=== PATIENT | female | born 1950 | race Caucasian/White ===

== ENCOUNTER → 2018-11-05 | Outpatient (CLI) | payer MEDICARE, OTHER ==
--- NOTE | 2018-11-05 13:15 | WOMENS IMAGING REPORT ---
EXAM DESCRIPTION: BILAT SCREENING MAMMO W/CAD COMPLETED DATE/TIME: 11/05/2018 12:54 pm REASON FOR STUDY: SCREENING MAMMO Z12.31 ENCNTR SCREEN MAMMOGRAM FOR MALIGNANT NEOPLASM OF YENY COMPARISON: None. TECHNIQUE: Standard craniocaudal and mediolateral oblique views of each breast recorded using digita l acquisition. LIMITATIONS: None. FINDINGS: Findings present which are benign by mammographic criteria. No suspicious masses, calcifi cations or architectural distortion. Pertinent benign findings: Cyst right. Read with the assistance of CAD. .[facility] - R2 Cenova Version 1.3 .[facility] - R2 Cenova Version 1.3 .[facility] - R2 Cenova Version 2.4 .[facility] [place] R2 Cenova Version 2.4 .[facility] - R2 Manager Of Digital Version 9.2 Benign mammographic findings may include one or more of the following: Smooth masses, popcorn/rim/co arse calcifications, asymmetries, post-procedure changes, and lesions with long-standing stability. IMPRESSION: BENIGN MAMMOGRAPHIC FINDINGS. BIRADS 2 BREAST DENSITY: b. There are scattered areas of fibroglandular density. BIRAD: 2 BENIGN FINDING(S) RECOMMENDATION: ROUTINE SCREENING COMMENT: The patient has been notified of the results by letter per SA requirements. Additional no tification policies are in place for contacting patient with suspicious or incomplete findings. Quality ID #[id number]: The [employer] recommends an annual screening mammogram for women aged 40 years or over. This facility utilizes a reminder system to ensure that all patients receive reminder letters, and/or direct phone calls for appointments. This includes reminders for routine scr eening mammograms, diagnostic mammograms, or other Breast Imaging Interventions when appropriate. Th is patient will be placed in the appropriate reminder system. The [employer] (ACR) has developed recommendations for screening MRI of the breast s in certain patient populations, to be used in conjunction with mammography. Breast MRI surveillanc e may be appropriate for women with more than 20% lifetime risk of developing breast cancer as deter mined by genetic testing, significant family history of the disease, or history of mantle radiation f or Hodgkins Disease. ACR Practice Guidelines 2008. TECHNICAL DOCUMENTATION: FINDING NUMBER: (1) ASSESSMENT: (1) JOB ID: [id number] [employer]- All Rights Reserved Reading location - IP/workstation name: [email or web address]
== END ==
LOC: WI 11:11
PROVIDERS: ATTEND Physician Assistant
DX: Z12.31 Encounter for screening mammogram for malignant neoplasm of breast (principal)
CPT/HCPCS: 77067

== ENCOUNTER → 2018-11-19 | Outpatient (CLI) | payer MEDICARE, OTHER ==
--- NOTE | 2018-11-19 12:33 | WOMENS IMAGING REPORT ---
EXAM DESCRIPTION: BONE DENSITY HIP/SPINE COMPLETED DATE/TIME: 11/19/2018 12:17 pm REASON FOR STUDY: OSTEOPOROSIS M81.0 M81.0 AGE-RELATED OSTEOPOROSIS W/O CURRENT PATHOLOGICAL FRAC COMPARISON: None. TECHNIQUE: Dual-Energy X-ray Absorptiometry (DEXA) of the AP Spine and Hip. LIMITATIONS: None. FINDINGS: LUMBAR SPINE: The bone mineral density (BMD) measured from L1-L4 in the AP projection correlates with a T-score of -1.3, which is osteopenia as defined by the World Health Organization. HIP: The bone mineral density (BMD) measured in the left hip correlates with a T-score of -1.8, which is o steopenia as defined by the World Health Organization. IMPRESSION: 1. LUMBAR SPINE: OSTEOPENIA. 2. HIP: OSTEOPENIA. COMMENT: The World Health Organization defines low BMD as follows: T-score: Normal: Greater than -1.0 Osteopenia: Between -1.0 and -2.5 Osteoporosis: Less than -2.5 without fractures Established osteoporosis: Less than -2.5 with fractures In general, you may wish to consider: Diagnosis Treatment Follow-up DEXA Normal BMD Prevention 2-3 years Osteopenia Prevention/Therapy 1-2 years Osteoporosis Therapy Yearly TECHNICAL DOCUMENTATION: JOB ID: [id number] [employer]- All Rights Reserved Reading location - IP/workstation name: [email or web address]
== END ==
LOC: WI 14:47
PROVIDERS: ATTEND Physician Assistant
DX: M81.0 Age-related osteoporosis without current pathological fracture (principal)
CPT/HCPCS: 77080

== ENCOUNTER 2020-03-21 18:41 | Emergency (ER) | payer MEDICARE, OTHER ==
--- NOTE | 2020-03-21 19:11 | ER Document Report ---
ED Medical Screen (RME) - General Chief Complaint: Altered Mental Status Stated Complaint: BACK PAIN Time Seen by Provider: 03/21/20 18:46 Primary Care Provider: MICHELINE JUAN PA-C [Primary Care Provider] - Follow up as needed Information source: Emergency Med Personnel Notes: 70-year-old female presented to ED for complaint of left chest shoulder arm pain that started while at the doctor's office. According to the EMS the [facility] told them that she was acting alert and oriented until she went to the bathroom and then she started becoming confused. She does have some confusion during her interview with me. She states that she does have sharp stabbing pains that come to the left side of her back down her left arm. She states that she was sure she had a UTI but the [facility] told her she does not but her urine was extremely dark so she may be dehydrated. She did make several comments that did not make sense and at other times she was perfectly lucid. She states she does smoke anywhere from 1 to 10 cigarettes a day but not more than that does not drink and does not use drugs. She states she does not have any past medical history and no surgical history. Consulted Dr. Richardson who came in and recommended she get a CTA of chest and abdomen and a CT of the head. These have been ordered as well as blood work. I have greeted and performed a rapid initial assessment of this patient. A comprehensive ED assessment and evaluation of the patient, analysis of test results and completion of medical decision making process will be conducted by an additional ED providers. TRAVEL OUTSIDE OF THE [place] IN LAST 30 DAYS: No Past Medical History - Immunizations Hx Diphtheria, Pertussis, Tetanus Vaccination: No Doctor's Discharge - Discharge Referrals: MICHELINE JUAN PA-C [Primary Care Provider] - Follow up as needed
[2020-03-21 19:30] LABS: ABSOLUTE BASOPHILS # (AUTO) 0.1 10^3/uL (0.0-0.2); ABSOLUTE EOSINOPHILS # (AUTO) 0.2 10^3/uL (0.0-0.6); ABSOLUTE LYMPHOCYTES (AUTO) 1.7 10^3/uL (0.5-4.7); ABSOLUTE NEUT (AUTO) 7.8 10^3/uL (1.7-8.2); BASOPHILS % (AUTO) 0.5 % (0-2); EOSINOPHILS % (AUTO) 2.1 % (0-6); HEMATOCRIT 45.5 % (36.0-47.0); HEMOGLOBIN 15.9 g/dL (12.0-15.5); LYMPHOCYTES % (AUTO) 15.9 % (13-45); MEAN CORPUSCULAR HEMOGLOBIN 30.4 pg (27.0-33.4); MEAN CORPUSCULAR HGB CONC 34.9 g/dL (32.0-36.0); MEAN CORPUSCULAR VOLUME 87 fl (80-97); MONOCYTES % (AUTO) 9.4 % (3-13); PLATELET COUNT 257 10^3/uL (150-450); RED BLOOD COUNT 5.22 10^6/uL (3.72-5.28); RED CELL DISTRIBUTION WIDTH 13.3 % (11.5-14.0); SEGMENTED NEUTROPHILS % (AUTO) 72.1 % (42-78); TOTAL CELLS COUNTED % (AUTO) 100 %; WHITE BLOOD COUNT 10.9 10^3/uL (4.0-10.5)
[2020-03-21 19:37] LABS: PROTHROMBIN TIME 13.2 SEC (11.4-15.4)
[2020-03-21 19:38] LABS: PARTIAL THROMBOPLASTIN TIME 26.4 SEC (23.5-35.8)
[2020-03-21 19:49] LABS: ALBUMIN 4.7 g/dL (3.5-5.0); ALKALINE PHOSPHATASE 91 U/L (38-126); ANION GAP 6 (5-19); ASPARTATE AMINO TRANSFERASE 38 U/L (14-36); BILIRUBIN,TOTAL 0.5 mg/dL (0.2-1.3); BLOOD UREA NITROGEN 22 mg/dL (7-20); CALCIUM 10.3 mg/dL (8.4-10.2); CARBON DIOXIDE 29 mmol/L (22-30); CHLORIDE 105 mmol/L (98-107); GLUCOSE 121 mg/dL (75-110); TOTAL PROTEIN 7.3 g/dL (6.3-8.2)
--- NOTE | 2020-03-21 20:05 | ER Document Report ---
ED General - General Chief Complaint: Altered Mental Status Stated Complaint: BACK PAIN Time Seen by Provider: 03/21/20 18:46 Primary Care Provider: MICHELINE JUAN PA-C [Primary Care Provider] - Follow up as needed TRAVEL OUTSIDE OF THE [place] 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 She is felt like she had recurrent episodes of spasm with this during the day. She is not taking any medications at home but has been very uncomfortable. She reports intermittently having some tingling into the left arm. She was seen at primary care physician's office and they felt that she needed a cardiac work-up and she was sent here for further evaluation. She still intermittently having discomfort although she is relatively free of pain when she lies still. She denies any difficulty with swallowing or speech. She was very anxious when she arrived here and the midlevel provider who did initial triage felt that she was mildly confused although patient denies any awareness of such problems. She denies headache, nausea, vomiting, diaphoresis or chest pain. She denies any visual symptoms. She denies any known trauma or unaccustomed activity. Patient is adopted and has no knowledge of her family history. She denies any known history of hypertension or diabetes. She denies any known history of thromboembolic disease. She is not taking any regular medications and has no known allergies. - Related Data Allergies/Adverse Reactions: No Known Allergies Allergy (Verified 03/21/20 19:31) Past Medical History - General Information source: Emergency Med Personnel - Social History Smoking Status: Current Every Day Smoker Frequency of alcohol use: None Drug Abuse: None Family History: None Patient has homicidal ideation: No - Past Medical History Cardiac Medical History: Reports: None Pulmonary Medical History: Reports: None Neurological Medical History: Reports: None GI Medical History: Reports: None Psychiatric Medical History: Reports: Hx Depression Past Surgical History: Reports: None - Immunizations Hx Diphtheria, Pertussis, Tetanus Vaccination: No Review of Systems - Review of Systems Notes: Constitutional: Negative for fever. HENT: Negative for sore throat. Eyes: Negative for visual changes. Cardiovascular: Negative for chest pain. Respiratory: Negative for shortness of breath. Gastrointestinal: Negative for abdominal pain, vomiting or diarrhea. Genitourinary: Negative for dysuria. Musculoskeletal: As per HPI. Skin: Negative for rash. Neurological: As per HPI. 10 point ROS negative except as marked above and in HPI. Physical Exam - Vital signs Vitals: Pulse Resp BP Pulse Ox 67 18 145/78 H 97 03/21/20 18:41 03/21/20 18:41 03/21/20 18:41 03/21/20 18:41 - Notes Notes: GENERAL: Female patient approximately stated age who appears somewhat anxious but otherwise in no acute distress. SKIN: Good turgor no rashes. HEAD: Normocephalic atraumatic. EYES: PERRLA. EOMI. Conjunctivae and sclerae clear. EARS: CANALS AND TMS CLEAR. NOSE: CLEAR. MOUTH: Moist mucosa. Good dentition. No stridor or edema. No drooling. NECK: Supple. No masses or thyromegaly. No adenopathy. Carotids 2+ without bruits. No JVD. BACK: Symmetrical with mild tenderness in the intrascapular region. Her pain seems to be aggravated with movement of the left upper extremity actively or passively and she is more comfortable when she is holding the arm still. CHEST: Respirations unlabored. Breath sounds clear and symmetrical. HEART: Regular rhythm. No murmur gallop or rub. ABDOMEN: Soft nontender without masses, organomegaly or rebound. Bowel sounds normally active. No bruits. GENITALIA: Deferred. EXTREMITIES: No edema. No calf tenderness. Cap refill less than 1.5 seconds. Upper extremity pulses are 3+ and symmetrical dorsalis pedis and posterior tibial pulses 3+ and symmetrical. NEUROLOGICAL: GCS 15. Alert and oriented x3. Fluent speech. Cranial nerves II through XII intact. Sensorimotor and cerebellar normal. Normal tone. PSYCHIATRIC: Anxious affect. Course - Re-evaluation Re-evalutation: 03/21/20 20:23 Differential diagnosis for this patient would include: Thoracic aortic dissection, myocardial ischemia, musculoskeletal strain, occult vertebral compression fracture. We will obtain a CT scan noncontrast of the head and a CTA of the chest and abdomen. Initial EKG is normal. Cardiac enzymes and d-dimer have been requested along with CBC and comprehensive metabolic profile. We will treat patient with analgesics for symptoms as needed pending current work-up. 03/21/20 23:31 D-dimer and initial troponin were normal. The twelve-lead EKG showed no acute changes at the time of presentation. CT of the head was reported as normal by radiologist. CT a of the chest and abdomen showed no evidence of aneurysm. She does have moderate scoliosis and significant degenerative arthritis at multiple levels with no evidence of any compression fractures. She is moderately osteoporotic. Patient had a repeat EKG and troponin III hours after the first and both of these are normal. She has had some mild cramping in her back with no other specific complaints. She is alert oriented and ambulatory at this time. Patient's episode of discomfort today appears to have been principally of musculoskeletal origin. She is a cigarette smoker and I strongly advised her that she must stop smoking. I think patient can be safely discharged home at this time for follow-up with primary care physician. I am going to treat her with Flexeril and ibuprofen and asked her to follow-up with her primary care physician within the next 24 hours. They may need to consider physical therapy for her. Again she is strongly advised to stop smoking. - Vital Signs Vital signs: Temp Pulse Resp BP Pulse Ox 98.3 F 60 13 143/85 H 97 03/21/20 19:07 03/21/20 22:10 03/21/20 23:00 03/21/20 22:10 03/21/20 23:00 - Laboratory Result Diagrams: 03/21/20 19:05 03/21/20 19:05 Laboratory results interpreted by me: 03/21/20 03/21/20 03/21/20 19:03 19:05 19:05 WBC 10.9 H Hgb 15.9 H BUN 22 H Glucose 121 H POC Glucose 129 H Calcium 10.3 H AST 38 H ALT 56 H Urine Blood Leukocyte Esterase Rfl 03/21/20 22:45 WBC Hgb BUN Glucose POC Glucose Calcium AST ALT Urine Blood SMALL H Leukocyte Esterase Rfl TRACE H - EKG Interpretation by Me Additional EKG results interpreted by me: 03/21/20 20:23 Twelve-lead EKG reviewed contemporaneously by me 1928 hrs. showing a normal sinus rhythm with a rate of 62 normal intervals and a QRS axis of -14 degrees. There are no acute ST/T wave changes appreciated. Discharge - Discharge Clinical Impression: Osteoarthritis thoracic spine and lumbar Back pain Qualifiers: Back pain location: thoracic back pain Chronicity: acute Back pain laterality: unspecified Qualified Code(s): M54.6 - Pain in thoracic spine Scoliosis Qualifiers: Scoliosis type: unspecified scoliosis Spinal region: thoracolumbar Qualified Code(s): M41.9 - Scoliosis, unspecified Condition: Stable Disposition: HOME, SELF-CARE Additional Instructions: Take [id number] ibuprofen 200 mg 2 tablets 3 times daily with food. Prescription for muscle relaxer is provided for use as needed. Ice packs to back as needed. Stop smoking. Recommend outpatient treadmill testing by your primary care provider. See your primary care provider within the next 24 to 48 hours for further up outpatient evaluation and you may need physical therapy. Prescriptions: Cyclobenzaprine HCl [Flexeril 10 mg Tablet] 10 mg PO QHS PRN #15 tablet PRN Reason: Forms: Smoking Cessation Education Referrals: MICHELINE JUAN PA-C [Primary Care Provider] - Follow up as needed
--- NOTE | 2020-03-21 20:42 | RADIOLOGY REPORT (SQ) ---
CT HEAD WITHOUT IV CONTRAST EXAM DATE: 03/21/2020 7:05 PM CDT HISTORY: Left chest pain and abd pain. COMPARISON: 06/15/2014 TECHNIQUE: CT scan of the brain was performed without IV contrast. This exam was performed according to our departmental dose-optimization program, which includes automated exposure control, adjustment of the mA and/or kV according to patient size and/or use of iterative reconstruction technique. FINDINGS: There are scattered areas of hypoattenuation within the periventricular white matter, which likely represent chronic microvascular ischemia. No evidence of acute infarction, intracranial hemorrhage, extra-axial fluid collection, or midline shift. No air-fluid levels are seen in the paranasal sinuses to suggest acute sinusitis. No depressed skull fracture. IMPRESSION: 1. No acute intracranial findings. 2. Senescent changes with chronic microvascular ischemia.
[2020-03-21 20:48] VITALS: BP 143/85
--- NOTE | 2020-03-21 20:48 | EKG REPORT ---
SEVERITY:- NORMAL ECG - SINUS RHYTHM : Confirmed by: Clayton Cerna 21-Mar-2020 20:47:33
--- NOTE | 2020-03-21 20:49 | RADIOLOGY REPORT (SQ) ---
CT ANGIOGRAPHY OF THE CHEST, ABDOMEN, AND PELVIS EXAM DATE: 03/21/2020 7:05 PM CDT HISTORY: Left chest pain and abdominal pain. COMPARISON: None. TECHNIQUE: CT angiogram of the chest, abdomen, and pelvis was performed with IV contrast. 3-D MIP images were obtained in coronal and sagittal reconstructions in post-processing. This exam was performed according to our departmental dose-optimization program, which includes automated exposure control, adjustment of the mA and/or kV according to patient size and/or use of iterative reconstruction technique. FINDINGS: The thyroid gland is unremarkable. No mediastinal or hilar adenopathy. The heart size is normal without pericardial effusion. No consolidation, pleural effusion, or pneumothorax. There is a small sliding hiatal hernia. The liver, spleen, pancreas, gallbladder, adrenal glands, and kidneys are unremarkable. The pelvic organs are unremarkable. The small and large bowel are grossly unremarkable. No free fluid or free air is seen. There is no aortic aneurysm or dissection. The celiac trunk, superior and inferior mesenteric arteries, renal arteries, and aortoiliac bifurcation are patent. . No filling defects are seen in the pulmonary trunk or the left and right main pulmonary artery. There is limited evaluation of the segmental branches due to suboptimal bolus timing. There are degenerative changes of the thoracolumbar spine. No acute fractures seen. There is a small fat-containing umbilical hernia. IMPRESSION: 1. No aortic aneurysm or dissection. 2. No acute intrathoracic or intra-abdominal findings.
[2020-03-21 23:02] LABS: APPEARANCE,URINE CLEAR; BILIRUBIN,URINE NEGATIVE (NEGATIVE); COLOR,URINE YELLOW; GLUCOSE, URINE NEGATIVE (NEGATIVE); KETONES,URINE NEGATIVE (NEGATIVE); PROTEIN,URINE NEGATIVE (NEGATIVE); UROBILINOGEN,URINE NEGATIVE mg/dL (<2.0)
[2020-03-21 23:12] LABS: URINE SPECIFIC GRAVITY > 1.060
[2020-03-21] MEDS ORDERED: IBUPROFEN 600 MG TABLET PO ONE (23:29)
[2020-03-21] MEDS ORDERED: CYCLOBENZAPRINE HCL 10 MG TABLET PO ONE (23:29)
--- NOTE | 2020-03-22 23:03 | EKG REPORT ---
SEVERITY:- BORDERLINE ECG - SINUS RHYTHM PROBABLE LEFT ATRIAL ABNORMALITY : Confirmed by: Clayton Cerna 22-Mar-2020 23:02:29
--- NOTE | 2020-03-22 23:03 | EKG REPORT ---
SEVERITY:- BORDERLINE ECG - SINUS RHYTHM PROBABLE LEFT ATRIAL ABNORMALITY : Confirmed by: Clayton Cerna 22-Mar-2020 23:02:34
== END 2020-03-22 00:16 | disposition home or self-care (01) ==
LOC: ER 18:41
DX: M47.814 Spondylosis without myelopathy or radiculopathy, thoracic region (principal); M47.816 Spondylosis without myelopathy or radiculopathy, lumbar region; M41.9 Scoliosis, unspecified; M81.0 Age-related osteoporosis without current pathological fracture; R20.2 Paresthesia of skin; F17.210 Nicotine dependence, cigarettes, uncomplicated
CPT/HCPCS: 93005; 99285; 36415; 82962; 85025; 85610; 85730; 80053; 81001; 84484; 85379; 70450; 71275; 74174; 93010; A9270 ×2